=== PATIENT | female | born 1930 | race Caucasian/White ===

== ENCOUNTER 2016-07-26 11:56 | Emergency (ER) | payer OTHER ==
[2016-07-26 12:11] VITALS: BP 177/71
--- NOTE | 2016-07-26 12:46 | PROVIDER DOCUMENTATION ---
HPI-EENT General <Radha Vargas - Last Filed: 07/26/16 15:20> - General Source: patient - History of Present Illness-EENT General EENT Location: reports: dental Quality of Pain: reports: other (mild sensitivity) Onset/Duration: reports: other (past several days) Timing: reports: still present Prearrival Treatment: Initiated no prearrival treatment Associated Symptoms: reports: malaise, other (shortness of breath) Similar Symptoms Previously?: Yes Recently seen or treated by another doctor?: No <LakhaniMarta - Last Filed: 07/26/16 17:31> - General Chief Complaint: Toothache Stated Complaint: TOOTHACHE/JAW PAIN Time Seen by Provider: 07/26/16 13:30 Allergies/Adverse Reactions: Patient Allergies Allergy/AdvReac Type Severity Reaction Status Date / Time doxycycline Allergy RASH Verified 03/15/16 10:57 levofloxacin [From Levaquin] Allergy RASH Verified 03/15/16 10:57 Home Medications: Home Medication List Medication Instructions Recorded Confirmed Last Taken Type Calcium 500 mg PO DAILY 09/17/14 03/11/16 03/11/16 History 500 MG Albuterol Sulfate [Proair 90 mcg IH BID PRN PRN 12/14/15 03/11/16 03/11/16 History Respiclick] 90 MCG Apixaban [Eliquis] 2.5 mg PO DAILY 12/14/15 03/11/16 03/11/16 History 2.5 MG Furosemide [Lasix] 40 mg PO DAILY #30 tablet 12/20/15 03/11/16 03/11/16 Rx 40 MG Diltiazem HCl [Diltiazem ER] 180 mg PO DAILY 03/11/16 03/11/16 03/11/16 History Garlic 1 each PO DAILY 03/11/16 03/11/16 03/11/16 History Losartan [Cozaar] 50 mg PO BID 03/11/16 03/11/16 03/11/16 History Mv-Mn/FA/Vit K1/Lycop/Lut/Zeax 1 each PO DAILY 03/11/16 03/11/16 03/11/16 History [Ocuvite Eye + Multi Tablet] Prednisone 20 mg PO BID #10 tablet 03/14/16 Unknown Rx Famotidine [Pepcid] 20 mg PO DAILY #20 tablet 03/15/16 Unknown Rx Nitrofurantoin Centre/Macrocryst 100 mg PO BID #14 capsule 07/26/16 Unknown Rx [Macrobid] - History of Present Illness-EENT General Nature of Presenting Problem: 86 yo female presents to ER with c/o teeth sensitive, shortness of breath, and just not feeling well. She states that last time she felt bad and short of breath she ended up in ICU because of her CHF. She did not take lasix today because she knew she was coming up here. She denies fever. (Marta Lakhani) Review of Systems - Adult - REVIEW OF SYSTEMS - ADULT Constitutional: reports: see HPI, fatique Eyes: reports: no symptoms reported Ears, Nose, Mouth & Throat: reports: no symptoms reported, mouth/dental pain Cardiovascular: reports: no symptoms reported Respiratory: reports: see HPI, shortness of breath Gastrointestinal: reports: no symptoms reported Genitourinary: reports: no symptoms reported Musculoskeletal: reports: no symptoms reported Integumentary: reports: no symptoms reported Neurological: reports: no symptoms reported Psychiatric: reports: no symptoms reported Endocrine: reports: no symptoms reported Hematologic/Lymphatic: reports: no symptoms reported Allergic/Immunologic: reports: no symptoms reported All Other Systems: Reviewed and Negative <Marta Lakhani - Last Filed: 07/26/16 17:31> Past History - Adult - PAST MEDICAL HISTORY-ADULT Major Childhood Illnesses: reports: denies history Cardiovascular: reports: A-Fib, CHF, HTN Respiratory: reports: denies history Gastrointestinal: reports: denies history Obstetrical/Gynecological: reports: denies history Genitourinary: reports: denies history Musculoskeletal: reports: denies history Neurological: reports: denies history Endocrine/Immune: reports: denies history 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) - PRIOR SURGERIES/PROCEDURES Surgical/Procedure History: reports: hysterectomy, breast (lumpectomy on right) , other (eye sx; ) - IMMUNIZATION STATUS Childhood Immunizations: See Nurse Assessment Flu Vaccine: See Nurse Assessment - SOCIAL HISTORY Smoking: denies, non-smoker Substance Use: denies Living Situation: family <Marta Lakhani - Last Filed: 07/26/16 17:31> Physical Exam- EENT - Physical Exam EENT Initial Vital Signs Reviewed: Yes General Appearance: appears well, alert, no apparent distress Eye Exam: bilateral eye: normal inspection, PERRL, EOMI Ear Exam: bilateral ear: auricle normal, canal normal, TM normal Nasal Exam: normal inspection Throat Exam: normal mouth inspection, pharynx normal, other (no swelling or TTP ; poor dentition; multiple teeth removed) Neck: non-tender, full range of motion, supple Respiratory: lungs clear, normal breath sounds, no respiratory distress Cardiovascular: normal peripheral pulses Abdominal Exam: normal bowel sounds, non tender, soft Back Exam: normal inspection, no CVA tenderness, no vertebral tenderness Extremity: pedal edema Integumentary: normal color, normal turgor, warm/dry Neurologic: grossly normal Psych/Mental Status: normal mood/affect, normal thought content, normal thought process, oriented x 3 <Marta Lakhani - Last Filed: 07/26/16 17:31> Progress - EKG 1 Time of EKG reading by physician:: 14:44 EKG Read and Signed by:: Sancho Rodriguez EKG Interpretation (*Must complete 3 of following elements*): Abnormal Rate: 58 Rhythm: a-fib with slow ventricular response [place]: right QRS: normal [place] Interval: normal ST Wave: non-specific ST changes (T wave abnormality) <Radha Vargas - Last Filed: 07/26/16 15:20> <Marta Lakhani - Last Filed: 07/26/16 17:31> - PLAN OF CARE/RESULTS Progress/Plan/Lab Results: 1645-Discussed results/dx/tx/discharge and follow up instructions with patient; she verbalized understanding. Laboratory Tests 07/26/16 07/26/16 07/26/16 14:20 14:20 14:20 WBC 4.87 RBC 4.29 Hgb 13.2 Hct 41.5 MCV 96.7 MCH 30.8 MCHC 31.8 L RDW Std Deviation 12.6 Plt Count 141 MPV 10.2 Immature Gran % (Auto) 0.0 Neut % (Auto) 60.2 Lymph % (Auto) 27.1 Centre % (Auto) 10.5 H Eos % (Auto) 1.8 Baso % (Auto) 0.4 Immature Gran # (Auto) 0.00 Neut # (Auto) 2.93 Lymph # (Auto) 1.32 Centre # (Auto) 0.51 Eos # (Auto) 0.09 Baso # (Auto) 0.02 Sodium 137 Potassium 4.2 Chloride 99 Carbon Dioxide 30 Anion Gap 9 BUN 18 Creatinine 1.0 H Estimated GFR/1.73 m2 52 BUN/Creatinine Ratio 18 Glucose 108 H Calculated Osmolality 276 Calcium 9.5 Total Bilirubin 0.70 AST 26 ALT 11 Alkaline Phosphatase 105 H Creatine Kinase 57 Troponin T [id number] Pept Total Protein 6.9 Albumin 4.3 Globulin 3.0 Albumin/Globulin Ratio 2.0 Urine Source Urine Color Urine Clarity Urine pH Ur Specific [place] Urine Protein Urine Ketones Urine Blood Urine Nitrite Urine Bilirubin Urine Urobilinogen Urine Microscopic RBC Urine WBC Urine Microscopic WBC Ur Epithelial Cells Urine Bacteria Urine Glucose 07/26/16 07/26/16 07/26/16 14:20 14:20 14:50 WBC RBC Hgb Hct MCV MCH MCHC RDW Std Deviation Plt Count MPV Immature Gran % (Auto) Neut % (Auto) Lymph % (Auto) Centre % (Auto) Eos % (Auto) Baso % (Auto) Immature Gran # (Auto) Neut # (Auto) Lymph # (Auto) Centre # (Auto) Eos # (Auto) Baso # (Auto) Sodium Potassium Chloride Carbon Dioxide Anion Gap BUN Creatinine Estimated GFR/1.73 m2 BUN/Creatinine Ratio Glucose Calculated Osmolality Calcium Total Bilirubin AST ALT Alkaline Phosphatase Creatine Kinase Troponin T < 0.010 [id number] Pept 1536 H Total Protein Albumin Globulin Albumin/Globulin Ratio Urine Source CLEAN CATCH Urine Color YELLOW Urine Clarity SL. CLOUDY A Urine pH 7.0 Ur Specific [place] 1.010 Urine Protein TRACE A Urine Ketones NEGATIVE Urine Blood TRACE Urine Nitrite NEGATIVE Urine Bilirubin NEGATIVE Urine Urobilinogen 4+(12 mg/dL) Urine Microscopic RBC <10 Urine WBC TRACE A Urine Microscopic WBC <10 Ur Epithelial Cells <10 Urine Bacteria 2+ Urine Glucose NEGATIVE Orders Category Date Time Status CHEST-2 VIEWS [RAD] Stat Exams 07/26/16 13:45 Completed CBC WITH ELECTRONIC DIFF [HEME] Stat Lab 07/26/16 14:20 Completed CK PROFILE [SP CHEM] Stat Lab 07/26/16 14:20 Completed COMPREHENSIVE METABOLIC PANEL [CHEM] Stat Lab 07/26/16 14:20 Completed PRO B-NATRIURETIC PEPTIDE Stat Lab 07/26/16 14:20 Completed TROPONIN T Stat Lab 07/26/16 14:[address] W/POSS RFLX CULT [URINALYSIS] Stat Lab 07/26/16 14:50 Completed URINE CULTURE [RM] Routine Lab 07/26/16 16:37 Ordered Nitrofurantoin Centre/Macrocryst [Macrobid] Med 07/26/16 16:47 Discontinued 100 mg PO NOW ONE EKG [EKG] Stat Ther 07/26/16 13:45 Draft Vital Signs - 24 hr 07/26/16 12:07 Temperature 97.8 F Pulse Rate 65 Respiratory 19 Rate Blood Pressure 177/71 O2 Sat by Pulse 97 Oximetry (Marta Lakhani) Departure <Radha Vargas - Last Filed: 07/26/16 15:20> - Departure Time of Disposition Order: 16:50 Certified Medical Emergency: Emergent <Marta Lakhani - Last Filed: 07/26/16 17:31> - Departure DIAGNOSIS: Shortness of breath on exertion, Pain, dental UTI (urinary tract infection) Qualifiers: Urinary tract infection type: acute cystitis Hematuria presence: with hematuria Qualified Code(s): N30.01 - Acute cystitis with hematuria Disposition: HOME 01 Condition: Good Additional Instructions: Follow up with primary care doctor. Follow up with dentist in regards to dental pain. Take medication as prescribed. ED Follow Up Instructions: You have been treated by a care provider in the Emergency Department. These instructions are being provided to you so you can have an understanding of how to care for yourself upon discharge. Upon discharge from the Emergency Department, you are responsible for making arrangements for follow-up care by a physician of your choice. Take all prescribed medications as directed. Return to the Emergency Department immediately for any new or worsening symptoms. You may call the Physician Referral phone number at [phone] to obtain a list of Physicians who are taking new patients. Prescriptions: Nitrofurantoin Centre/Macrocryst [Macrobid] 100 mg PO BID #14 capsule Referrals: None,PCP [Primary Care Provider] - Ena Daley MD [STAFF PHYSICIAN] - Instructions: Nitrofurantoin tablets or capsules, Dental Pain, Shortness of Breath, Urinary Tract Infection Attestation - Scribe Verification/Attestation Scribe:: Radha Vargas Acting as Scribe for:: Marta Lakhani Scribe documention review:: This chart was documented by a scribe and accurately reflects the service the provider performed and the decisions made by the provider. <Radha Vargas - Last Filed: 07/26/16 15:20> - Physician/ LEONID Attestation Patient care was provided by Advanced Practice Provider:: Yes Advanced Practice Provider:: Marta Lakhani Advanced Practice Provider documentation review:: The Mid-level provider documentation, treatment plan and medical decision making was reviewed by the physician who agrees with all treatment and medical decision making by the P. <Marta Lakhani - Last Filed: 07/26/16 17:31> Physician Attestation - Physician Attestation I, the provider, attest to the following statement:: Marta Lakhani Physician documentation Attestation:: This documentation recorded by the scribe accurately reflects the service I personally performed and the decisions made by me. <Marta Lakhani - Last Filed: 07/26/16 17:31>
[2016-07-26 14:26] LABS: MANUAL DIFF NEEDED? NO
[2016-07-26 14:28] LABS: BASO% 0.4 % (0.0-0.8); EOS# 0.09 X1000 (0.0-0.7); EOS% 1.8 % (0.0-10.0); HEMATOCRIT 41.5 % (37.0-47.0); HEMOGLOBIN 13.2 g/dL (12.0-16.0); LYMPH# 1.32 X1000 (1.2-3.4); LYMPH% 27.1 % (20.5-51.1); MCH 30.8 PG (27-31); MCHC 31.8 g/dL (33-37); MCV 96.7 FL (81-99); MONO# 0.51 X1000 (0.11-0.59); MONO% 10.5 % (1.7-9.3); MPV 10.2 FL (7.4-10.4); NEUT% 60.2 % (42.2-75.2); PLT 141 X1000 (130-400); RBC 4.29 XMIL (4.2-5.4)
--- NOTE | 2016-07-26 14:31 | Diag Imaging Result Document ---
PROCEDURE NAME: CHEST-2 VIEWS - 07/26/2016 TWO VIEWS OF THE CHEST: FINDINGS: There is a hiatal hernia. There are bilateral small pleural effusions. This is worse than on 03/11/2016. Otherwise, there has been no significant change. IMPRESSION: Pleural effusions. Cardiomegaly.
[2016-07-26 14:45] LABS: ALBUMIN 4.3 g/dL (3.5-5.0); CALCIUM 9.5 mg/dL (8.8-10.2); POTASSIUM 4.2 mmol/L (3.5-5.1); TOTAL BILIRUBIN 0.7 mg/dL (0.20-1.00); TOTAL PROTEIN 6.9 g/dL (6.3-8.3)
--- NOTE | 2016-07-26 15:19 | EKG Report ---
Test Performed on : 07/26/2016 2:44:54 PM Test Reason : shortness of breath Blood Pressure : / mmHG Vent. Rate : 058 BPM Atrial Rate : 416 BPM P-R Int : 000 ms QRS Dur : 086 ms QT Int : 582 ms P-R-T Axes : 000 090 -10 degrees QTc Int : 571 ms Atrial fibrillation. with slow ventricular response. Rightward axis Nonspecific T wave abnormality Abnormal ECG When compared with ECG of 17-DEC-2015 06:17, Criteria for Anterior infarct are no longer present Unconfirmed Result
[2016-07-26 16:15] LABS: URINE SOURCE CLEAN CATCH
[2016-07-26 16:34] LABS: BILIRUBIN URINE NEGATIVE (NEGATIVE); BLOOD URINE TRACE (NEGATIVE); CLARITY SL. CLOUDY (CLEAR); COLOR YELLOW; GLUCOSE URINE NEGATIVE (NEGATIVE); LEUKOCYTES URINE TRACE (NEGATIVE); NITRITE URINE NEGATIVE (NEGATIVE); PROTEIN URINE TRACE mg/dL (NEGATIVE); UROBILINOGEN URINE 4+(12 mg/dL)
[2016-07-26 16:37] LABS: URINE CULTURE PL NEEDED? YES; URINE EPITHELIAL CELLS <10 /HPF (<10); URINE RBC <10 /HPF (<10); URINE WBC <10 /HPF (<10)
[2016-07-26] MEDS ORDERED: MACROBID PO ONE (16:47)
== END 2016-07-26 17:06 | disposition home or self-care (01) ==
LOC: P.ED 11:56
DX: N30.01 Acute cystitis with hematuria (principal); K08.89 Other specified disorders of teeth and supporting structures; R06.02 Shortness of breath; R94.31 Abnormal electrocardiogram [ECG] [EKG]; R68.84 Jaw pain; R53.81 Other malaise; R53.83 Other fatigue; I48.91 Unspecified atrial fibrillation; Z79.899 Other long term (current) drug therapy; I50.9 Heart failure, unspecified; I10 Essential (primary) hypertension; Z79.01 Long term (current) use of anticoagulants; Z85.810 Personal history of malignant neoplasm of tongue
CPT/HCPCS: 71020; 80053; 81001; 82550; 83880; 84484; 85025; 87088; 93005; 99284

== ENCOUNTER 2016-08-08 10:49 | Inpatient (IN) | payer OTHER ==
[2016-08-08] MEDS ORDERED: ASPIRIN PO STA (10:57)
[2016-08-08 11:33] LABS: MANUAL DIFF NEEDED? NO
[2016-08-08 11:35] LABS: BASO% 0.6 % (0.0-0.8); EOS# 0.14 X1000 (0.0-0.7); EOS% 3.9 % (0.0-10.0); HEMATOCRIT 39.4 % (37.0-47.0); HEMOGLOBIN 12.9 g/dL (12.0-16.0); LYMPH# 1.31 X1000 (1.2-3.4); LYMPH% 36.7 % (20.5-51.1); MCH 31.3 PG (27-31); MCHC 32.7 g/dL (33-37); MCV 95.6 FL (81-99); MONO# 0.36 X1000 (0.11-0.59); MONO% 10.1 % (1.7-9.3); MPV 10.2 FL (7.4-10.4); NEUT% 48.7 % (42.2-75.2); PLT 140 X1000 (130-400); RBC 4.12 XMIL (4.2-5.4)
--- NOTE | 2016-08-08 11:39 | Diag Imaging Result Document ---
PROCEDURE NAME: CHEST-2 VIEWS - 08/08/2016 TWO VIEWS OF THE CHEST: FINDINGS: There is cardiomegaly. There is bibasilar atelectasis which was not present on the left side on 03/11/2016. Otherwise, the lungs are stable in appearance. IMPRESSION: Atelectasis versus bronchopneumonia, left lower lobe.
--- NOTE | 2016-08-08 11:50 | PROVIDER DOCUMENTATION ---
HPI-Cardiac General <SmithLolisRaya - Last Filed: 08/08/16 14:58> - General Source: patient - History of Present Illness-Cardiac Location: reports: other (mild discomfort under her left breast) Quality of Pain: reports: other (discomfort) Severity in ED: mild Onset/Duration: 2 days ago Timing: still present Context/Activities at Onset: reports: none Modifying Factors: improves with: nothing History of arrythmia: reports: A-Fib Recent use of:: reports: no stimulants Nitro Today/Relief: reports: no nitro taken today Aspirin Treatment Today: reports: no aspirin today (she is on coumadin) Associated Symptoms: reports: weakness Similar Symptoms Previously?: Yes Recently Seen Here or By Another Healthcare Provider: Yes <Marta Lakhani - Last Filed: 08/08/16 20:05> - General Chief Complaint: Weakness Stated Complaint: WEAKNESS/POSS HEART ATTACK Time Seen by Provider: 08/08/16 11:29 Allergies/Adverse Reactions: Patient Allergies Allergy/AdvReac Type Severity Reaction Status Date / Time doxycycline Allergy RASH Verified 03/15/16 10:57 levofloxacin [From Levaquin] Allergy RASH Verified 03/15/16 10:57 Home Medications: Home Medication List Medication Instructions Recorded Confirmed Last Taken Type Calcium 500 mg PO DAILY 09/17/14 08/08/16 03/11/16 History 500 MG Furosemide [Lasix] 40 mg PO DAILY #30 tablet 12/20/15 08/08/16 03/11/16 Rx 40 MG Diltiazem HCl [Diltiazem ER] 180 mg PO DAILY 03/11/16 08/08/16 03/11/16 History Garlic 1 each PO DAILY 03/11/16 08/08/16 03/11/16 History Losartan [Cozaar] 50 mg PO BID 03/11/16 08/08/16 03/11/16 History Mv-Mn/FA/Vit K1/Lycop/Lut/Zeax 1 each PO DAILY 03/11/16 08/08/16 03/11/16 History [Ocuvite Eye + Multi Tablet] Warfarin [Coumadin] 5 mg PO DAILY 08/08/16 08/08/16 Unknown History - History of Present Illness-Cardiac Nature of Presenting Problem: 86 yo female presents to ER stating that she saw her heel blacker on Wednesday ; that doctor sent her to hospital for labs/cxr/EKG. Patient was called by heel blacker office and told that she needs to see vehicle leasing and rental manager as soon as possible and that she had a heart attack. She states that her vehicle leasing and rental manager office could not see her until August and she could not come to hospital yesterday so she came today. (Lakhani.) Review of Systems - Adult - REVIEW OF SYSTEMS - ADULT Constitutional: reports: see HPI, other (weakness) Eyes: reports: no symptoms reported Ears, Nose, Mouth & Throat: reports: no symptoms reported Cardiovascular: reports: see HPI Respiratory: reports: no symptoms reported Gastrointestinal: reports: no symptoms reported Genitourinary: reports: no symptoms reported Musculoskeletal: reports: no symptoms reported Integumentary: reports: no symptoms reported Neurological: reports: no symptoms reported Psychiatric: reports: no symptoms reported Endocrine: reports: no symptoms reported Hematologic/Lymphatic: reports: no symptoms reported Allergic/Immunologic: reports: no symptoms reported All Other Systems: Reviewed and Negative <LesviaAugust. - Last Filed: 08/08/16 20:05> Past History - Adult - PAST MEDICAL HISTORY-ADULT Review of Records: reports: Old Records Reviewed, Nursing Assessment Review, Medications Reviewed, Social history reviewed & non-contributory. 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 - Last Filed: 08/08/16 20:05> Physical Exam-General - PHYSICAL EXAM-ADULT Initial Vital Signs Reviewed: Yes - CONSTITUTIONAL General Appearance: appears well, alert, no apparent distress - EYES Eyes: PERRL/EOMI - HEAD, EARS, NOSE, MOUTH & THROAT HENMT: normocephalic/atraumatic - RESPIRATORY Respiratory: lungs clear, normal breath sounds, no respiratory distress - CARDIOVASCULAR Cardiovascular: normal peripheral pulses - MUSCULOSKELETAL Extremity: pedal edema (1-2 + pitting edema; patient states is is normal for her ) Peripheral Pulses: radial (R): 2+, radial (L): 2+, dorsalis-pedis (R): 2+, dorsalis-pedis (L): 2+ - SKIN Integumentary: normal color, normal turgor, warm/dry - NEUROLOGIC Neurologic: grossly normal - PSYCHIATRIC Psych/Mental Status: normal mood/affect, normal thought content, normal thought process, oriented x 3 <Marta Lakhani - Last Filed: 08/08/16 20:05> Progress - EKG 1 Time of EKG reading by physician:: 14:25 EKG Read and Signed by:: Sancho Rodriguez EKG Interpretation (*Must complete 3 of following elements*): Abnormal Rate: 52 Rhythm: junctional rhythm Comments: septal infarct, age undetermined <Raya Mtz - Last Filed: 08/08/16 14:58> - REASSESSMENT Reassessment #1 Time Reassessed: 16:20 Status: unchanged - CONSULTS/PCP/HOSPITALIST Notification #1 *Consult/PCP/Hospitalist*: Dr. Burrell Time Discussed: 16:30 (hospitalist) Consult Disposition: Admit <Marta Lakhani - Last Filed: 08/08/16 20:05> - PLAN OF CARE/RESULTS Progress/Plan/Lab Results: 1620-Discussed with Dr. Rodriguez labs/CXR results/decrease in HR to 35-38 with weakness symptoms; he agreed with admission. 1625-Discussed with patient results/dx/admission to hospital; she verbalized understanding. Laboratory Tests 08/08/16 08/08/16 08/08/16 11:15 11:15 11:15 WBC RBC Hgb Hct MCV MCH MCHC RDW Std Deviation Plt Count MPV Immature Gran % (Auto) Neut % (Auto) Lymph % (Auto) [place] % (Auto) Eos % (Auto) Baso % (Auto) Immature Gran # (Auto) Neut # (Auto) Lymph # (Auto) [place] # (Auto) Eos # (Auto) Baso # (Auto) PT INR APTT (Factor Assay) Sodium 140 Potassium 3.7 Chloride 100 Carbon Dioxide 29 Anion Gap 11 BUN 21 Creatinine 1.0 H Estimated GFR/1.73 m2 52 BUN/Creatinine Ratio 21 Glucose 83 Calculated Osmolality 282 Calcium 9.3 Magnesium 2.2 Total Bilirubin 0.60 AST 26 ALT 12 Alkaline Phosphatase 92 Creatine Kinase 53 Troponin T < 0.010 Zdx-I-Lsteyiiomjf Pept 1794 H Total Protein 6.8 Albumin 4.2 Globulin 3.0 Albumin/Globulin Ratio 2.0 TSH 08/08/16 08/08/16 08/08/16 11:15 11:15 13:13 WBC 3.57 L RBC 4.12 L Hgb 12.9 Hct 39.4 MCV 95.6 MCH 31.3 H MCHC 32.7 L RDW Std Deviation 12.5 Plt Count 140 MPV 10.2 Immature Gran % (Auto) 0.0 Neut % (Auto) 48.7 Lymph % (Auto) 36.7 [place] % (Auto) 10.1 H Eos % (Auto) 3.9 Baso % (Auto) 0.6 Immature Gran # (Auto) 0.00 Neut # (Auto) 1.74 Lymph # (Auto) 1.31 [place] # (Auto) 0.36 Eos # (Auto) 0.14 Baso # (Auto) 0.02 PT 21.7 H INR 1.87 H APTT (Factor Assay) 38.6 Sodium Potassium Chloride Carbon Dioxide Anion Gap BUN Creatinine Estimated GFR/1.73 m2 BUN/Creatinine Ratio Glucose Calculated Osmolality Calcium Magnesium Total Bilirubin AST ALT Alkaline Phosphatase Creatine Kinase Troponin T < 0.010 Cbc-U-Xumyncmpuow Pept Total Protein Albumin Globulin Albumin/Globulin Ratio TSH 08/08/16 08/08/16 08/08/16 13:13 18:55 18:55 WBC RBC Hgb Hct MCV MCH MCHC RDW Std Deviation Plt Count MPV Immature Gran % (Auto) Neut % (Auto) Lymph % (Auto) [place] % (Auto) Eos % (Auto) Baso % (Auto) Immature Gran # (Auto) Neut # (Auto) Lymph # (Auto) [place] # (Auto) Eos # (Auto) Baso # (Auto) PT INR APTT (Factor Assay) Sodium Potassium Chloride Carbon Dioxide Anion Gap BUN Creatinine Estimated GFR/1.73 m2 BUN/Creatinine Ratio Glucose Calculated Osmolality Calcium Magnesium Total Bilirubin AST ALT Alkaline Phosphatase Creatine Kinase 47 Troponin T < 0.010 Mqe-K-Jcpanghfshb Pept Total Protein Albumin Globulin Albumin/Globulin Ratio TSH 1.95 08/08/16 18:55 WBC RBC Hgb Hct MCV MCH MCHC RDW Std Deviation Plt Count MPV Immature Gran % (Auto) Neut % (Auto) Lymph % (Auto) [place] % (Auto) Eos % (Auto) Baso % (Auto) Immature Gran # (Auto) Neut # (Auto) Lymph # (Auto) [place] # (Auto) Eos # (Auto) Baso # (Auto) PT INR APTT (Factor Assay) Sodium Potassium Chloride Carbon Dioxide Anion Gap BUN Creatinine Estimated GFR/1.73 m2 BUN/Creatinine Ratio Glucose Calculated Osmolality Calcium Magnesium Total Bilirubin AST ALT Alkaline Phosphatase Creatine Kinase 49 Troponin T Czq-L-Cgzokzolsxc Pept Total Protein Albumin Globulin Albumin/Globulin Ratio TSH Orders Category Date Time Status Admit - [facility] Routine AdmDCTranf 08/08/16 17:13 Ordered Activity - Strict Bedrest ORDERED Care 08/08/16 17:13 Active Cardiac Monitoring DIRECTED Care 08/08/16 10:57 Completed Currently Rec Anticoagulation [QM] ROUTINE Care 08/08/16 18:04 Active Intake and Output-Strict ORDERED Care 08/08/16 18:04 Active Nursing- Assist w/ IS as order ORDERED Care 08/08/16 18:22 Active Nursing- MD Consult Request ROUTINE Care 08/08/16 19:43 Active Oxygen Therapy- ED Nursing DIRECTED Care 08/08/16 10:57 Completed Saline Loc NOW Care 08/08/16 10:57 Active Vital Signs Order Q 8-HR .ASSESS Care 08/08/16 17:13 Active Physician/Provider Consults Routine Cons 08/08/16 19:42 Ordered Heart Healthy Diet Diet 08/08/16 14:16 Active CHEST-2 VIEWS [RAD] Stat Exams 08/08/16 10:57 Completed BLOOD CULTURE [BLDCUL] Stat Lab 08/08/16 12:15 Results CBC WITH ELECTRONIC DIFF [HEME] Stat Lab 08/08/16 11:15 Completed CBC WITH NO DIFF [HEME] Routine Lab 08/09/16 06:00 Ordered CK PROFILE [SP CHEM] Routine Lab 08/08/16 18:55 Completed CK PROFILE [SP CHEM] Stat Lab 08/08/16 11:15 Completed CK PROFILE [SP CHEM] Stat Lab 08/08/16 13:13 Completed COMPREHENSIVE METABOLIC PANEL [CHEM] Routine Lab 08/09/16 06:00 Ordered COMPREHENSIVE METABOLIC PANEL [CHEM] Stat Lab 08/08/16 11:15 Completed MAGNESIUM [CHEM] Stat Lab 08/08/16 11:15 Completed PRO B-NATRIURETIC PEPTIDE Stat Lab 08/08/16 11:[address] Com[address]IME WITH INR PL [COAG] Stat Lab 08/08/16 11:15 Completed PROTIME WITH INR [COAG] DAILY Lab 08/09/16 06:00 Ordered PROTIME WITH INR [COAG] DAILY Lab 08/10/16 06:00 Ordered PROTIME WITH INR [COAG] DAILY Lab 08/11/16 06:[address] [COAG] Stat Lab 08/08/16 11:15 Completed TROPONIN T Routine Lab 08/08/16 18:55 Completed TROPONIN T Stat Lab 08/08/16 11:15 Completed TROPONIN T Stat Lab 08/08/16 13:13 Completed TSH Stat Lab 08/08/16 18:55 Completed Aspirin Med 08/08/16 10:57 Discontinued 325 mg PO STAT STA CefTRIAXONE 1 GM/NS [Rocephin 1 gm/Ns] 50 ml Med 08/08/16 18:30 Active IV Q24H Furosemide [Lasix] Med 08/09/16 09:00 Active 40 mg PO DAILY Omeprazole [Prilosec] Med 08/09/16 07:00 Active 40 mg PO DAILY@0700 Ondansetron [Zofran] Med 08/08/16 18:04 Active 4 mg IV Q4H PRN PRN Warfarin [Coumadin] Med 08/08/16 21:00 Active 5 mg PO HS Incentive Spirometer Routine Oth 08/08/16 18:22 Active Telemetry [OM.EQ] Routine Oth 08/08/16 17:13 Active EKG [EKG] Routine Ther 08/08/16 18:24 Ordered EKG [EKG] Stat Ther 08/08/16 10:57 Draft EKG [EKG] Stat Ther 08/08/16 12:32 Draft Transfer/Admit Order [TRANSFER] Routine Transfer 08/08/16 14:14 Completed Vital Signs - 24 hr 08/08/16 08/08/16 08/08/16 10:53 11:47 12:00 Temperature 97.8 F Pulse Rate 62 53 L Respiratory 18 13 Rate Blood Pressure 160/64 136/88 154/53 O2 Sat by Pulse 98 97 Oximetry 08/08/16 08/08/16 08/08/16 12:16 12:30 12:45 Temperature Pulse Rate 51 L 47 L 50 L Respiratory 18 18 17 Rate Blood Pressure 145/56 155/63 155/63 O2 Sat by Pulse 97 97 Oximetry 08/08/16 08/08/16 08/08/16 13:00 13:15 13:30 Temperature Pulse Rate 53 L 50 L 47 L Respiratory 19 17 20 Rate Blood Pressure 154/58 160/61 146/59 O2 Sat by Pulse 96 96 Oximetry 08/08/16 08/08/16 08/08/16 13:45 14:00 14:15 Temperature Pulse Rate 54 L 52 L 54 L Respiratory 16 19 20 Rate Blood Pressure 164/61 154/79 150/64 O2 Sat by Pulse 97 98 97 Oximetry 08/08/16 08/08/16 08/08/16 14:30 15:00 15:15 Temperature Pulse Rate 50 L 53 L 49 L Respiratory 15 22 18 Rate Blood Pressure 159/63 143/63 156/61 O2 Sat by Pulse 97 Oximetry 08/08/16 08/08/16 08/08/16 15:30 15:45 16:00 Temperature Pulse Rate 50 L 48 L 49 L Respiratory 17 17 17 Rate Blood Pressure 144/67 143/58 149/61 O2 Sat by Pulse 95 97 97 Oximetry 08/08/16 08/08/16 08/08/16 16:15 16:31 17:54 Temperature 97.7 F Pulse Rate 65 47 L 57 L Respiratory 18 17 18 Rate Blood Pressure 165/59 137/66 153/54 O2 Sat by Pulse 97 97 Oximetry (Marta Lakhani) Departure <Raya Mtz - Last Filed: 08/08/16 14:58> - Departure Time of Disposition Order: 20:03 Certified Medical Emergency: Emergent <Marta Lakhani - Last Filed: 08/08/16 20:05> - Departure DIAGNOSIS: Bradycardia, Weakness Disposition: ADMITTED INPATIENT 09 Condition: Good Attestation - Scribe Verification/Attestation Scribe:: Raya Mtz Acting as Scribe for:: Sancho Rodriguez Scribe documention review:: This chart was documented by a scribe and accurately reflects the service the provider performed and the decisions made by the provider. <Raya Mtz - Last Filed: 08/08/16 14:58> - Physician/ LEONID Attestation Patient care was provided by Advanced Practice Provider:: Yes Advanced Practice Provider:: Marta Lakhani Advanced Practice Provider documentation review:: The Mid-level provider documentation, treatment plan and medical decision making was reviewed by the physician who agrees with all treatment and medical decision making by the P. <Marta Lakhani - Last Filed: 08/08/16 20:05> Physician Attestation - Physician Attestation I, the provider, attest to the following statement:: Marta Lakhani Physician documentation Attestation:: This documentation recorded by the scribe accurately reflects the service I personally performed and the decisions made by me. <Marta Lakhani - Last Filed: 08/08/16 20:05>
[2016-08-08 11:57] LABS: ALBUMIN 4.2 g/dL (3.5-5.0); CALCIUM 9.3 mg/dL (8.8-10.2); MAGNESIUM 2.2 mg/dL (1.5-2.7); POTASSIUM 3.7 mmol/L (3.5-5.1); TOTAL BILIRUBIN 0.6 mg/dL (0.20-1.00); TOTAL PROTEIN 6.8 g/dL (6.3-8.3)
[2016-08-08 12:04] LABS: INR 1.87 (0.86-1.15); PROTIME 21.7 Seconds (12.1-15.5)
[2016-08-08 12:05] LABS: PTT PL 38.6 Seconds (22.6-43.9)
--- NOTE | 2016-08-08 12:08 | EKG Report ---
Test Performed on : 08/08/2016 11:54:21 AM Test Reason : CHEST PAIN Blood Pressure : / mmHG Vent. Rate : 049 BPM Atrial Rate : 047 BPM P-R Int : 000 ms QRS Dur : 086 ms QT Int : 466 ms P-R-T Axes : 000 090 -30 degrees QTc Int : 420 ms Atrial fibrillation. with slow ventricular response. Rightward axis Nonspecific T wave abnormality Abnormal ECG When compared with ECG of 06-AUG-2016 12:39, (Unconfirmed) Previous ECG has undetermined rhythm, needs review Criteria for Septal infarct are no longer present Unconfirmed Result
--- NOTE | 2016-08-08 12:51 | ED EKG INTERP ---
EKG Interpretation - EKG Time of EKG reading by physician:: 11:54 EKG Read and Signed by:: Sancho Rodriguez EKG Interpretation (*Must complete 3 of following elements*): Abnormal Rate: 49 Rhythm: atrial fibrillation with slow ventricular response Comments: rightward axis; nonspecific T wave abnormality Attestation - Scribe Verification/Attestation Scribe:: Raya Mtz Acting as Scribe for:: Sancho Rodriguez Scribe documention review:: This chart was documented by a scribe and accurately reflects the service the provider performed and the decisions made by the provider.
--- NOTE | 2016-08-08 16:23 | EKG Report ---
Test Performed on : 08/08/2016 2:25:00 PM Test Reason : repeat cardiac profile Blood Pressure : / mmHG Vent. Rate : 052 BPM Atrial Rate : 048 BPM P-R Int : 000 ms QRS Dur : 088 ms QT Int : 496 ms P-R-T Axes : 000 023 -43 degrees QTc Int : 461 ms Junctional rhythm. Septal infarct , age undetermined Abnormal ECG When compared with ECG of 08-AUG-2016 11:54, (Unconfirmed) Junctional rhythm. has replaced Atrial fibrillation. Septal infarct is now present Unconfirmed Result
[2016-08-08] MEDS ORDERED: ZOFRAN IV PRN (18:04)
[2016-08-08] MEDS: ROCEPHIN 1 GM/NS 50 ML IV SCH (19:09)
--- NOTE | 2016-08-08 20:19 | HISTORY AND PHYSICAL ---
CHIEF COMPLAINT: Generalized weakness. HISTORY OF PRESENT ILLNESS: This is an 86-year-old female with a history of hypertension, atrial fibrillation and congestive heart failure with an echocardiogram in October 2015 showing an EF of 65% with moderate to severe tricuspid regurgitation who presented to the emergency room after being called by her program lead office being told that she needed to be seen by device repair technician as soon as possible that she may have had a heart attack evidently from an EKG that was done in their office on Thursday. She stated that she called the device repair technician's office, they could not see her till August yesterday morning and she thought about it and decided to come to the emergency room today for evaluation. She did state that she has had some generalized weakness with shortness of breath since last Thursday. She denied any chest pain, syncope, palpitations, dizziness. EKG revealed a junctional rhythm at a rate of 52. Troponins have been negative on multiple occasions. She was also found to have a left lower lobe bronchopneumonia. In the emergency room blood cultures were obtained. She was given an aspirin and she is being admitted for further evaluation and treatment. PAST MEDICAL HISTORY: Chronic atrial fibrillation with chronic anticoagulation, hypertension, diastolic heart failure, moderate to moderately severe tricuspid regurgitation. PAST SURGICAL HISTORY: Hysterectomy and lumpectomy on the right breast. SOCIAL HISTORY: She denies alcohol, tobacco, or illicit drug use. ALLERGIES: Doxycycline and Levaquin. HOME MEDICATIONS: Warfarin 5 mg daily, Cozaar 50 mg b.i.d., garlic 1 daily, Lasix 40 mg daily, diltiazem ER 180 daily, calcium 500 daily. REVIEW OF SYSTEMS: A 14 point review of systems is discussed patient with pertinent positives stated in HPI. She denied any chest pain or chest pressure or palpitations, syncope, dizziness cough, fever, chills, nausea, vomiting, diarrhea, constipation, black or bloody vomitus, black or bloody stools, hematuria, dysuria. PHYSICAL EXAMINATION: GENERAL: This is an 86-year-old female who is actually standing at the bedside in no distress. VITAL SIGNS: Blood pressure is 153/54 with a heart rate of 57, respirations are 18, temperature is 97.7 degrees oral with O2 saturations of 97% on nasal cannula. CARDIOVASCULAR: Irregularly irregular rate and rhythm. She does have very faint 2/6 holosystolic murmur. PULMONARY: Breath sounds are clear. No increased work of breathing noted GASTROINTESTINAL: Abdomen is soft, nontender, nondistended. Bowel sounds in all 4 quadrants. EXTREMITIES: She does have some slight edema pretibial to ankles bilateral. This is nonpitting. Calves are nontender. DIAGNOSTICS: WBC is 3.5 with hemoglobin 12.9, hematocrit 39.4 and platelets of 140,000. INR is 1.87. Sodium is 140, potassium 3.7, BUN 21, creatinine 1 with a glucose of 83. Troponin is less than 0.010 multiple occasions. ProBNP is 1794. Chest x-ray revealed left lower lobe bronchopneumonia. Blood cultures are pending. ASSESSMENT AND PLAN: 1. Bradycardia. 2. Left lower lobe pneumonia. 3. General weakness. 4. Chronic atrial fibrillation with chronic anticoagulation. 5. Moderate tricuspid regurgitation with mild pulmonary hypertension. 6. Diastolic heart failure with an ejection fraction of 65% in October 2015. PLAN: Patient will be admitted to the hospital. She will be placed on telemetry. We will hold all of her medications. Will give supplemental oxygen. We will maintain a strict I and O saline lock. We will continue her warfarin with daily PT, INRs, recheck a CBC and CMP in the morning as well as an EKG. We will start Rocephin 1 g daily. Cardiology will be consulted. Further treatments pending hospital course. Dictated by DIVYA De Dios for Lamberto Burrell MD
[2016-08-08] MEDS: COUMADIN PO SCH (20:28)
[2016-08-09] MEDS: PRILOSEC PO SCH (06:08)
[2016-08-09 06:24] LABS: HEMATOCRIT 34.8 % (37.0-47.0); MCH 30.4 PG (27-31); MCHC 31.6 g/dL (33-37); MCV 96.1 FL (81-99); MPV 11.1 FL (7.4-10.4); RBC 3.62 XMIL (4.2-5.4)
[2016-08-09 06:27] LABS: INR 2.09 (0.86-1.15); PROTIME 23.6 Seconds (12.1-15.5)
--- NOTE | 2016-08-09 06:31 | EKG Report ---
Test Performed on : 08/08/2016 6:34:25 PM Test Reason : a fib, bradycardia Blood Pressure : / mmHG Vent. Rate : 052 BPM Atrial Rate : 060 BPM P-R Int : 000 ms QRS Dur : 090 ms QT Int : 450 ms P-R-T Axes : 000 022 -44 degrees QTc Int : 418 ms Atrial fibrillation. with slow ventricular response. RSR' or QR pattern in V1 suggests right ventricular conduction delay Nonspecific ST and T wave abnormality Abnormal ECG When compared with ECG of 08-AUG-2016 14:25, (Unconfirmed) Atrial fibrillation. has replaced Junctional rhythm. Criteria for Septal infarct are no longer present Unconfirmed Result
[2016-08-09 06:41] LABS: ALBUMIN 3.5 g/dL (3.5-5.0); CALCIUM 8.7 mg/dL (8.8-10.2); POTASSIUM 3.7 mmol/L (3.5-5.1); TOTAL BILIRUBIN 0.4 mg/dL (0.20-1.00); TOTAL PROTEIN 5.4 g/dL (6.3-8.3)
[2016-08-09] MEDS: COZAAR PO SCH ×2 (09:25→20:33)
[2016-08-09] MEDS: LASIX PO SCH (09:25)
--- NOTE | 2016-08-09 11:27 | PROGRESS NOTE ---
DATE: 08/09/2016 SUBJECTIVE: The patient notes that she is feeling better. States her heart rate was in the upper 40s and low 50s overnight. Denies any current chest pain or palpitations. Denies any fevers or chills. OBJECTIVE: Vital Signs: Reviewed. Temperature 98 degrees, pulse 55, respiratory rate 18, blood pressure 124/44, saturation 98% on room air. General: The patient is well developed and well nourished. She is currently in no real respiratory distress. She is awake, alert. Neck: Supple. Cardiovascular: Bradycardic. No appreciable murmurs. Chest: Clear. Abdomen: Soft. Extremities: Moves all extremities. LABORATORIES: CBC unchanged. INR 2.09. ASSESSMENT: 1. Atrial fibrillation, currently rate controlled with bradycardia. 2. Symptomatic bradycardia, improved. 3. Hypercoagulable secondary to Coumadin, stable. INR greater than 2. 4. Hypertension. PLAN: Patient's blood pressures have been relatively well controlled. She did not get her Hyzaar yesterday. We will restart that today. Will hold her diltiazem today and follow. Should her heart rate start to elevate, we will start back at a lower dose, possibly 120 instead of her current home dose of 180. Hopefully, home in the a.m.
--- NOTE | 2016-08-09 17:29 | CONSULTATION ---
DATE OF CONSULTATION: 08/09/2016 INDICATION: Bradycardia. HISTORY OF PRESENT ILLNESS: Ms. Barrios is a pleasant 86-year-old white female who normally follows with Dr. Kirkland. She has a history of chronic atrial fibrillation, maintained on Coumadin, last seeing him in the office at the end of April. She came in with generalized weakness, as it has been ongoing for what sounds like months. She was seen in her food writer's office and was told she needed to be seen by her fashion coordinator as soon as possible because an EKG may have indicated that she had a heart attack. She subsequently presented to the ER and was evaluated and found to have an EKG that showed a significant atrial fibrillation with a bradycardic ventricular response. She was admitted for further evaluation. In addition, her chest x-rays suggest a left lower lobe pneumonia. PAST MEDICAL HISTORY: 1. Significant for chronic atrial fibrillation maintained on diltiazem as well as Coumadin. 2. Severe tricuspid regurgitation. 3. COPD. 4. History of diastolic heart failure. 5. Hypertension. 6. Chronic renal insufficiency. SOCIAL HISTORY: She denies any alcohol, tobacco or illicit drug use. FAMILY HISTORY: Significant for hypertension. REVIEW OF SYSTEMS: A 10 system review of systems is negative except for those mentioned in HPI. PHYSICAL EXAMINATION: She is afebrile. Her heart rates during this hospitalization have ranged between the 40s and 60s. More recently, she has been predominantly in the 50s. Her blood pressure is 142/61.General: She is in no acute distress. HEENT: Oropharynx is moist. Poor dentition. Eye examination shows pink conjunctivae, white sclerae. Neck: Examination shows no obvious thyromegaly or thyroid tenderness. Cardiovascular: She is in a regular rate and rhythm. She has no obvious murmurs. She has no S3. She has trace to 1+ bilateral lower extremity edema. Chest: Clear to auscultation bilaterally. She has no increased work of breathing. Abdomen: Soft, nontender, nondistended. No obvious organomegaly. Skin Exam: Warm and dry throughout without any rashes. Neurological: She is moving all extremities well. Cranial nerves 2 through 12 are intact without any sensation deficits. Psychiatric: Alert and oriented, pleasant. She has normal mood and affect. PERTINENT DATA: Her EKG on the at 11:54 seems to show atrial fibrillation with a bradycardic response. She does seem to have some irregularity in her ventricular response suggesting that it is not a junctional escape. Next EKG at 14:25 yesterday again shows atrial fibrillation. This one appears relatively regular with a bradycardic response at 52 beats per minute suggesting a possible junctional escape and subsequent EKG occurring at 18:34 yesterday shows atrial fib, bradycardic ventricular response. There is irregularity in the ventricular response suggesting that it is not a junctional rhythm. White count is 3.3. Hematocrit 34.8, platelet count is 110,000. INR is 2.09. Sodium 141, potassium 3.7. Her BUN is 19, creatinine 0.9. Her magnesium level yesterday was 2.2. She has negative cardiac enzymes. Her TSH is 1.95. Her proBNP is 1794. ASSESSMENT: Atrial fibrillation with bradycardic response. PLAN: The patient does not have digoxin listed in her home medications but I will add a dig level just in case given that she has had some EKG suggesting a possible junctional escape. The diltiazem has been stopped and likely we will proceed with home heart rate monitoring to ensure that the patient is not having a significant arrhythmia requiring possible pacemaker implantation. The patient is maintained on warfarin for her atrial fibrillation which I agree with. Primary team is managing this presently. TSH is unremarkable.
[2016-08-09] MEDS: ROCEPHIN 1 GM/NS 50 ML IV SCH (18:27)
[2016-08-09] MEDS: COUMADIN PO SCH (20:32)
[2016-08-10] MEDS: PRILOSEC PO SCH (05:59)
[2016-08-10 07:02] LABS: INR 2.06 (0.86-1.15); PROTIME 23.3 Seconds (12.1-15.5)
[2016-08-10 07:49] VITALS: BP 141/50
[2016-08-10] MEDS: COZAAR PO SCH (09:14)
[2016-08-10] MEDS: LASIX PO SCH (09:14)
--- NOTE | 2016-08-10 19:08 | DISCHARGE SUMMARY ---
ADMISSION DATE: 08/08/2016 DISCHARGE DATE: 08/10/2016 DISCHARGE DIAGNOSES: 1. Bradycardia. Improved after stopping her home Cardizem. Her heart rates have been in the upper 50s, low 60s. 2. Atrial fibrillation. Currently rate controlled without Cardizem. 3. Hypercoagulable. She is on Coumadin 5 mg at nighttime. INR is 2.08. 4. Syncope, resolved. Secondary to her symptomatic bradycardia. 5. Hypertension, improved. CONSULTATIONS: Dr. Jhonathan Dumont with Cardiology. PROCEDURES AND BRIEF HOSPITAL COURSE: The patient is an 86-year-old female who presented to the emergency department as noted in the HPI, treated in the usual fashion. She was placed on telemetry. Her heart rate continued to improve. On discharge she was awake, alert. She was in no distress. She was feeling better. She was able to ambulate without any difficulty. Thankfully she had an uneventful hospital course. DISPOSITION: The patient will be discharged home. DISCHARGE INSTRUCTIONS: She will follow up outpatient with Cardiology for an event monitor. Then she will follow up outpatient with an appointment with Cardiology to evaluate to see if she is going to need a pacemaker. Will continue to hold her Cardizem. Will continue her other home medications of Coumadin 5 mg at nighttime, Lasix 40, omeprazole 40, and Cozaar 50 b.i.d. TIME: Thirty-five minutes was spent in discharge planning and instructions.
--- NOTE | 2016-08-15 10:06 | DISCHARGE SUMMARY ---
ADMISSION DATE: 08/08/2016 DISCHARGE DATE: 08/10/2016 DISCHARGE SUMMARY ADDENDUM: Pneumonia was ruled out. The patient was discharged home without antibiotics.
== END 2016-08-10 16:55 | disposition home or self-care (01) | DRG 309 ==
LOC: P.ED 10:49 → P.EDIPHOLD 15:19 → P.MEDSURG 16:44
PROVIDERS: ATTEND Family Medicine
DX: R00.1 Bradycardia, unspecified (principal); I13.0 Hypertensive heart and chronic kidney disease with heart failure and stage 1 through stage 4 chronic kidney disease, or unspecified chronic kidney disease; I27.2 Other secondary pulmonary hypertension; I50.32 Chronic diastolic (congestive) heart failure; I48.2 Chronic atrial fibrillation; I07.1 Rheumatic tricuspid insufficiency; Z79.01 Long term (current) use of anticoagulants; Z85.89 Personal history of malignant neoplasm of other organs and systems; Z79.899 Other long term (current) drug therapy; N18.9 Chronic kidney disease, unspecified; R79.1 Abnormal coagulation profile
CPT/HCPCS: 36415; 71020; 80053; 80162; 82550; 83735; 83880; 84443; 84484; 85025; 85027; 85610; 85730; 87040; 93005; 94761; 94799; 99285; J0696

== ENCOUNTER 2016-09-17 14:48 | Inpatient (IN) ==
[2016-09-17 15:35] LABS: MANUAL DIFF NEEDED? NO
[2016-09-17 15:45] LABS: BASO% 0.2 % (0.0-0.8); EOS# 0.07 X1000 (0.0-0.7); EOS% 1.7 % (0.0-10.0); HEMATOCRIT 37.4 % (37.0-47.0); HEMOGLOBIN 11.9 g/dL (12.0-16.0); LYMPH# 1.49 X1000 (1.2-3.4); LYMPH% 36.1 % (20.5-51.1); MCH 30.5 PG (27-31); MCHC 31.8 g/dL (33-37); MCV 95.9 FL (81-99); MONO# 0.41 X1000 (0.11-0.59); MONO% 9.9 % (1.7-9.3); NEUT% 52.1 % (42.2-75.2); PLT 111 X1000 (130-400)
[2016-09-17] MEDS ORDERED: APRESOLINE IV ONE (15:47)
--- NOTE | 2016-09-17 15:48 | PROVIDER DOCUMENTATION ---
HPI-Cardiac General - General Chief Complaint: Shortness of Breath Stated Complaint: SOB Time Seen by Provider: 09/17/16 15:36 Source: patient Allergies/Adverse Reactions: Patient Allergies Allergy/AdvReac Type Severity Reaction Status Date / Time doxycycline Allergy RASH Verified 03/15/16 10:57 levofloxacin [From Levaquin] Allergy RASH Verified 03/15/16 10:57 Home Medications: Home Medication List Medication Instructions Recorded Confirmed Last Taken Type Calcium 500 mg PO DAILY 09/17/14 08/08/16 03/11/16 History 500 MG Furosemide [Lasix] 40 mg PO DAILY #30 tablet 12/20/15 08/08/16 03/11/16 Rx 40 MG Garlic 1 each PO DAILY 03/11/16 08/08/16 03/11/16 History Losartan [Cozaar] 50 mg PO BID 03/11/16 08/08/16 03/11/16 History Mv-Mn/FA/Vit K1/Lycop/Lut/Zeax 1 each PO DAILY 03/11/16 08/08/16 03/11/16 History [Ocuvite Eye + Multi Tablet] Warfarin [Coumadin] 5 mg PO DAILY 08/08/16 08/08/16 Unknown History Omeprazole [Prilosec] 40 mg PO DAILY@0700 #30 capsule 08/10/16 Unknown Rx - History of Present Illness-Cardiac Nature of Presenting Problem: 86 y/o WF, poor historian, with daughter in room. She has a history of AFib with chronic anticoagulation on Warfarin, HTN, and congestive heart failure with preserved EF of 68% on last echo in October 2015, presenting today for shortness of breath. She was recently hospitalized in July for this same complaint and generalized weakness. She apparently has had weakness and shortness or breath for the past 3-4 months, and has not felt improved since last admission. She followed up with the non destructive evaluation specialist within the last two weeks , she cannot remember what day. She was supposed to have an event monitor per last discharge plan, but states she has not had this. Reports dyspnea on exertion, no weight gain that she has noticed from her baseline. Denies chest pain or cough. Review of Systems - Adult - REVIEW OF SYSTEMS - ADULT Constitutional: reports: see bindu DEL RIO. denies: chills, fever Eyes: reports: no symptoms reported. denies: decreased vision, blurred vision, double vision, eye pain Ears, Nose, Mouth & Throat: reports: no symptoms reported. denies: ear pain, nose pain, throat pain Cardiovascular: reports: no symptoms reported. denies: chest pain, irregular heart rate, palpitations Respiratory: reports: see HPI, shortness of breath. denies: cough, wheezing Gastrointestinal: reports: no symptoms reported. denies: abdominal pain, diarrhea, nausea, vomiting Genitourinary: reports: no symptoms reported. denies: dysuria, discharge, frequency Musculoskeletal: reports: no symptoms reported. denies: bone pain, back pain, muscle aches Integumentary: reports: no symptoms reported. denies: rash Neurological: reports: no symptoms reported. denies: headache/migraines Psychiatric: reports: no symptoms reported Endocrine: reports: no symptoms reported Hematologic/Lymphatic: reports: no symptoms reported Allergic/Immunologic: reports: no symptoms reported All Other Systems: Reviewed and Negative Past History - Adult - PAST MEDICAL HISTORY-ADULT Review of Records: reports: Old Records Reviewed, Nursing Assessment Review, Medications Reviewed Major Childhood Illnesses: reports: denies history Cardiovascular: reports: CHF, HTN Respiratory: reports: denies history Gastrointestinal: reports: denies history Obstetrical/Gynecological: reports: denies history Genitourinary: reports: denies history Musculoskeletal: reports: denies history Neurological: reports: denies history 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) Other Conditions: reports: other cancer (tongue) - PRIOR SURGERIES/PROCEDURES Surgical/Procedure History: reports: hysterectomy, breast (lumpectomy on right) , other (eye sx; ) - IMMUNIZATION STATUS Childhood Immunizations: See Nurse Assessment Flu Vaccine: See Nurse Assessment - FAMILY HISTORY Family History: reviewed, not pertinent - SOCIAL HISTORY Smoking: denies Substance Use: none/never Alcohol Use Frequency: never Physical Exam-General - PHYSICAL EXAM-ADULT Initial Vital Signs Reviewed: Yes - CONSTITUTIONAL General Appearance: appears well, alert, anxious - EYES Eyes: PERRL/EOMI, pink conjunctivae - HEAD, EARS, NOSE, MOUTH & THROAT HENMT: normocephalic/atraumatic, moist mucous membranes, normal ENT inspection - NECK Neck: supple, normal inspection - RESPIRATORY Respiratory: chest non-tender, lungs clear, normal breath sounds, no pleuratic chest pain, no respiratory distress, no accessory muscle use. negative: respiratory distress, decreased breath sounds, accessory muscle use, crackles, rales, rhonchi, wheezing - CARDIOVASCULAR Cardiovascular: normal peripheral pulses, regular rate, rhythm, bradycardia, irregularly irregular, other (1+ edema to knees bilaterally) - MUSCULOSKELETAL Extremity: normal range of motion, non-tender, pedal edema Peripheral Pulses: dorsalis-pedis (R): 2+, dorsalis-pedis (L): 2+ - SKIN Integumentary: normal color, normal turgor, warm/dry - NEUROLOGIC Neurologic: grossly normal, no motor/sensory deficits - PSYCHIATRIC Psych/Mental Status: normal mood/affect, normal thought content, normal thought process, oriented x 3 Progress - PLAN OF CARE/RESULTS Progress/Plan/Lab Results: Vital Signs - 8 hr 09/17/16 14:52 09/17/16 16:23 09/17/16 17:00 Temperature 98 F 97.4 F L Pulse Rate 67 58 L 59 L Respiratory Rate 18 20 20 Blood Pressure 205/67 190/79 172/77 O2 Sat by Pulse Oximetry 97 95 95 09/17/16 18:42 09/17/16 19:15 Temperature Pulse Rate 46 L 52 L Respiratory Rate 15 19 Blood Pressure 172/64 175/71 O2 Sat by Pulse Oximetry 93 L 95 Laboratory Results - last 24 hr 09/17/16 09/17/16 09/17/16 15:25 15:25 15:25 WBC 4.13 L RBC 3.90 L Hgb 11.9 L Hct 37.4 MCV 95.9 MCH 30.5 MCHC 31.8 L RDW Std Deviation 13.1 Plt Count 111 L MPV 10.0 Immature Gran % (Auto) 0.0 Neut % (Auto) 52.1 Lymph % (Auto) 36.1 Hart % (Auto) 9.9 H Eos % (Auto) 1.7 Baso % (Auto) 0.2 Immature Gran # (Auto) 0.00 Neut # (Auto) 2.15 Lymph # (Auto) 1.49 Hart # (Auto) 0.41 Eos # (Auto) 0.07 Baso # (Auto) 0.01 APTT (Factor Assay) D-Dimer Sodium 138 Potassium 4.0 Chloride 100 Carbon Dioxide 28 Anion Gap 10 BUN 16 Creatinine 0.7 Estimated GFR/1.73 m2 > 60 BUN/Creatinine Ratio 23 Glucose 88 Calculated Osmolality 276 Calcium 9.3 Magnesium 2.1 Total Bilirubin 0.80 AST 31 H ALT 12 Alkaline Phosphatase 93 Creatine Kinase 52 Troponin T < 0.010 Dul-I-Jdnpgpyrsku Pept Total Protein 7.0 Albumin 4.1 Globulin 3.0 Albumin/Globulin Ratio 1.0 09/17/16 09/17/16 09/17/16 15:25 17:40 17:40 WBC RBC Hgb Hct MCV MCH MCHC RDW Std Deviation Plt Count MPV Immature Gran % (Auto) Neut % (Auto) Lymph % (Auto) Hart % (Auto) Eos % (Auto) Baso % (Auto) Immature Gran # (Auto) Neut # (Auto) Lymph # (Auto) Hart # (Auto) Eos # (Auto) Baso # (Auto) APTT (Factor Assay) 42.1 D-Dimer < 0.22 L Sodium Potassium Chloride Carbon Dioxide Anion Gap BUN Creatinine Estimated GFR/1.73 m2 BUN/Creatinine Ratio Glucose Calculated Osmolality Calcium Magnesium Total Bilirubin AST ALT Alkaline Phosphatase Creatine Kinase 51 Troponin T < 0.010 Vfm-I-Bzhpnkdjacv Pept Total Protein Albumin Globulin Albumin/Globulin Ratio 09/17/16 17:40 WBC RBC Hgb Hct MCV MCH MCHC RDW Std Deviation Plt Count MPV Immature Gran % (Auto) Neut % (Auto) Lymph % (Auto) Hart % (Auto) Eos % (Auto) Baso % (Auto) Immature Gran # (Auto) Neut # (Auto) Lymph # (Auto) Hart # (Auto) Eos # (Auto) Baso # (Auto) APTT (Factor Assay) D-Dimer Sodium Potassium Chloride Carbon Dioxide Anion Gap BUN Creatinine Estimated GFR/1.73 m2 BUN/Creatinine Ratio Glucose Calculated Osmolality Calcium Magnesium Total Bilirubin AST ALT Alkaline Phosphatase Creatine Kinase Troponin T Zvo-H-Pzrhfwkexvc Pept 1949 H Total Protein Albumin Globulin Albumin/Globulin Ratio Orders Category Date Time Status Cardiac Monitoring DIRECTED Care 09/17/16 15:08 Active CHEST-2 VIEWS [RAD] Stat Exams 09/17/16 15:08 Draft CBC WITH ELECTRONIC DIFF [HEME] Stat Lab 09/17/16 15:25 Completed CK PROFILE [SP CHEM] Stat Lab 09/17/16 15:25 Completed CK PROFILE [SP CHEM] Stat Lab 09/17/16 17:40 Completed COMPREHENSIVE METABOLIC PANEL [CHEM] Stat Lab 09/17/16 15:[address] D-D[address] [COAG] Stat Lab 09/17/16 15:25 Completed MAGNESIUM [CHEM] Stat Lab 09/17/16 15:[address] [COAG] Stat Lab 09/17/16 15:25 Completed TROPONIN T Stat Lab 09/17/16 15:25 Completed TROPONIN T Stat Lab 09/17/16 17:40 Completed UA NIMS W/REFLEX CULT PL [URINALYSIS] Stat Lab 09/17/16 15:46 Ordered pro-bnp [PRO B-NATRIURETIC PEPTIDE] Stat Lab 09/17/16 17:40 Completed Azithromycin 500 mg/Ns [Zithromax 500 mg/Ns] Med 09/17/16 16:19 Discontinued 500 mg in 250 ml IV NOW Clonidine [Catapres] Med 09/17/16 16:28 Discontinued 0.1 mg PO NOW ONE Hydralazine [Apresoline] Med 09/17/16 15:47 Discontinued 10 mg IV NOW ONE EKG [EKG] Stat Ther 09/17/16 15:08 Draft EKG [EKG] Stat Ther 09/17/16 17:15 Draft Discussed patient with Dr. Rodriguez, who reviewed chart, labs and radiology. Agrees with treatment, disposition and plan Discussed findigs and plan with patient and family members; they are uncomfortable sending her home with her shortness of breath and her bradycardia. Result Diagrams: 09/17/16 15:25 09/17/16 15:25 - XRAY 1 XRAY: Bilateral XRAY Study: Chest Impression: Abnormal (small infiltrate or atelectasis in the right lung base per radiology) - CONSULTS/PCP/HOSPITALIST Notification #1 *Consult/PCP/Hospitalist*: Dr. morin, hospitalist Time Discussed: 19:31 Reason/Comments: dyspnea, bradycardia Consult Disposition: Admit Departure - Departure Time of Disposition Decision: 18:55 DIAGNOSIS: SOB (shortness of breath), Chronic a-fib, Bradycardia, Weakness CHF (congestive heart failure) Qualifiers: Congestive heart failure type: diastolic Congestive heart failure chronicity: chronic Qualified Code(s): I50.32 - Chronic diastolic (congestive) heart failure Pneumonia Qualifiers: Pneumonia type: due to unspecified organism Laterality: right Lung location: lower lobe of lung Qualified Code(s): J18.1 - Lobar pneumonia, unspecified organism Disposition: ADMITTED INPATIENT 09 Certified Medical Emergency: Emergent Condition: Stable Additional Freetext Instructions: Follow up with Dr. Swain this week ED Follow Up Instructions: You have been treated by a care provider in the Emergency Department. These instructions are being provided to you so you can have an understanding of how to care for yourself upon discharge. Upon discharge from the Emergency Department, you are responsible for making arrangements for follow-up care by a physician of your choice. Take all prescribed medications as directed. Return to the Emergency Department immediately for any new or worsening symptoms. You may call the Physician Referral phone number at [phone] to obtain a list of Physicians who are taking new patients. Referrals and Follow-Ups: Taurus Damico MD [Primary Care Provider] - Rah Swain MD [STAFF PHYSICIAN] - Work Excuses: Return to School/Parent Work Discharge Education: Shortness of Breath, Vaml-tm-Nodz, Weakness, Fjih-xq-Dikc , Azithromycin tablets, Heart Failure, Syxb-ae-Hxqg Attestation - Physician/ LEONID Attestation Patient care was provided by Advanced Practice Provider:: Yes Advanced Practice Provider:: Mansi Collins Advanced Practice Provider documentation review:: The Mid-level provider documentation, treatment plan and medical decision making was reviewed by the physician who agrees with all treatment and medical decision making by the MLP.
[2016-09-17 15:53] LABS: AGAP 10; ALBUMIN 4.1 g/dL (3.5-5.0); ALKALINE PHOSPHATASE 93 U/L (32-104); BUN 16 mg/dL (8-22); CALCIUM 9.3 mg/dL (8.8-10.2); CHLORIDE 100 mmol/L (98-107); CK PROFILE 52 U/L (24-173); COSMO 276; GOT 31 U/L (10-30); GPT 12 U/L (10-36); MAGNESIUM 2.1 mg/dL (1.5-2.7); PTT PL 42.1 Seconds (22.6-43.9); SODIUM 138 mmol/L (136-145); TCO2 28 mmol/L (25-35)
--- NOTE | 2016-09-17 15:59 | EKG Report ---
Test Performed on : 09/17/2016 3:46:05 PM Test Reason : CHEST PAIN Blood Pressure : / mmHG Vent. Rate : 054 BPM Atrial Rate : 046 BPM P-R Int : 000 ms QRS Dur : 082 ms QT Int : 478 ms P-R-T Axes : 000 075 -29 degrees QTc Int : 453 ms Atrial fibrillation. with slow ventricular response. Septal infarct , age undetermined Abnormal ECG When compared with ECG of 08-AUG-2016 18:34, Septal infarct is now present Unconfirmed Result
[2016-09-17] MEDS ORDERED: ZITHROMAX 500 MG/NS 500 MG/250 ML IVPB IV ONE (16:19)
[2016-09-17] MEDS ORDERED: CATAPRES PO ONE (16:28)
--- NOTE | 2016-09-17 18:23 | EKG Report ---
Test Performed on : 09/17/2016 5:41:36 PM Test Reason : sob Blood Pressure : / mmHG Vent. Rate : 056 BPM Atrial Rate : 064 BPM P-R Int : 000 ms QRS Dur : 086 ms QT Int : 494 ms P-R-T Axes : 000 066 -44 degrees QTc Int : 476 ms Atrial fibrillation. with slow ventricular response. Septal infarct (cited on or before 17-SEP-2016) Abnormal ECG When compared with ECG of 17-SEP-2016 15:46, (Unconfirmed) No significant change was found Unconfirmed Result
--- NOTE | 2016-09-17 18:58 | Diag Imaging Result Document ---
PROCEDURE NAME: CHEST-2 VIEWS - 09/17/2016 FRONTAL AND LEFT CHEST, 2 VIEWS: COMPARISON: Compared to 08/08/2016. The lungs are well expanded. The heart is mildly enlarged. The vessels are not distended. There is an infiltrate or atelectasis in the right base. No effusions. Increased AP diameter to the chest. IMPRESSION: 1. Emphysema. 2. Mildly prominent heart. 3. Atelectasis versus a small infiltrate in the right base.
[2016-09-17] MEDS ORDERED: MIRALAX PO ONE (20:43)
[2016-09-17] MEDS: COUMADIN PO SCH (22:47)
[2016-09-18 01:39] LABS: BILIRUBIN URINE NEGATIVE (NEGATIVE); BLOOD URINE 2+ (NEGATIVE); CLARITY CLEAR (CLEAR); COLOR YELLOW; GLUCOSE URINE NEGATIVE (NEGATIVE); LEUKOCYTES URINE TRACE (NEGATIVE); NITRITE URINE NEGATIVE (NEGATIVE); PH URINE 6.5; PROTEIN URINE 1+(30 mg/dL) mg/dL (NEGATIVE); SP GRAVITY URINE 1.015; UROBILINOGEN URINE NORMAL
[2016-09-18 01:55] LABS: URINE CULTURE PL NEEDED? YES; URINE EPITHELIAL CELLS <10 /HPF (<10); URINE RBC <10 /HPF (<10); URINE SMALL ROUND CELLS TRANSITIONAL PRESENT; URINE SOURCE CLEAN CATCH; URINE WBC <10 /HPF (<10)
[2016-09-18] MEDS: PATIENT'S OWN MED PO SCH (09:22)
[2016-09-18] MEDS: TUMS PO SCH (09:22)
[2016-09-18] MEDS: LASIX PO SCH (09:22)
[2016-09-18] MEDS: COZAAR PO SCH (09:22)
[2016-09-18] MEDS: MIRALAX PO SCH (09:22)
--- NOTE | 2016-09-18 09:32 | Diag Imaging Result Document ---
PROCEDURE NAME: KUB ABDOMEN - 09/17/2016 KUB ABDOMEN: FINDINGS: The bowel gas pattern appears nonspecific and nonobstructive. There is a moderate amount of retained fecal debris in the rectosigmoid colon and in the right colon which may relate to constipation. IMPRESSION: Possible constipation. Nonspecific bowel gas pattern otherwise.
[2016-09-18] MEDS: OCUVITE LUTEIN & ZEAXANTHIN PO SCH (09:52)
--- NOTE | 2016-09-18 14:58 | CONSULTATION ---
DATE OF CONSULTATION: 09/18/2016 HISTORY OF PRESENT ILLNESS: Ms. Petra Barrios is an 86-year-old lady who cardiology was consulted for bradycardia. She has paroxysmal atrial fibrillation. She was recently admitted with atrial fibrillation. However, has a had bradycardia and diltiazem was discontinued. She comes in with weakness. No velma syncopal episode. Electrocardiogram at the moment reveals normal sinus rhythm. She has also had sinus bradycardia, rates in the 50s and 60s. She wore a monitor for 30 days. However, she does have the monitor with her and she was going to go home and send it in so that this can be analyzed and follow up with Dr. Swain. She has shortness of breath. She complains of weakness. Denies chest pain suggestive of angina. REVIEW OF SYSTEMS: A 14-point review of systems was done.GI: There is no history of nausea, vomiting, or diarrhea. Genitourinary: There is no dysuria or hematuria. Respiratory System: She has shortness of breath. There is no cough, fevers, or chills. PAST MEDICAL HISTORY: 1. Paroxysmal atrial fibrillation. 2. Severe tricuspid regurgitation. 3. COPD. 4. Diastolic heart failure. 5. Renal insufficiency. 6. Hypertension. MEDICATIONS: Her current home medications include: 1. Calcium 500. 2. Losartan 50. 3. Garlic pills. 4. Coumadin as directed. 5. Lasix 40. ALLERGIES: She is allergic to doxycycline and levofloxacin. SOCIAL HISTORY: She does not smoke. There is no history of alcohol abuse. PHYSICAL EXAMINATION: Vital signs: Blood pressure was 136/61. Cardiovascular System: Normal jugular venous pressure. First and second heart sounds were heard. There was a systolic murmur. Respiratory System: Few scattered expiratory wheeze. Abdomen: Soft, nontender. There was no guarding or rigidity. Bowel sounds were heard. Central nervous system: Alert, oriented. Was moving extremities. Extremities: Examination revealed mild pedal edema. LABORATORY: Chemistry 138, potassium 4.0, BUN 16, creatinine 0.7. Hematology: Hemoglobin 11.9, hematocrit 37, platelet count of 111,000. Coagulation: APTT 42.1. Chest x-ray revealed atelectasis and emphysema. There was no obvious pneumonia. ASSESSMENT AND PLAN: 1. Ms. Petra Barrios is an 86-year-old lady with paroxysmal atrial fibrillation, severe tricuspid regurgitation, and diastolic heart failure, is admitted with weakness and some shortness of breath. From a cardiac standpoint she has sinus bradycardia at the moment in the 50s. She is anticoagulated with Coumadin. 2. As far as atrial fibrillation is concerned, medications were discontinued because of the bradycardia she had with medications during her last hospitalization. She has worn a 30 day loop monitor. RECOMMENDATIONS: 1. I have recommended that she send this back to the company so that this can be evaluated and sent to our office. She can go to rehab and follow up with Dr. Swain as outpatient to go over the results of the 30 day monitor to see whether or not she is a candidate for pacemaker implantation. 2. She is anticoagulated for stroke prophylaxis. 3. There is no bleeding diathesis. Would recommend continuing her medication. Thank you for the consult. We will follow the hospital course. cc: Aneesh Sheets MD
--- NOTE | 2016-09-18 15:40 | HISTORY AND PHYSICAL ---
CHIEF COMPLAINT: Increasing shortness of breath and weakness over the last 2 weeks. She denied chest pain or palpitations, syncope, dizziness. HISTORY OF PRESENT ILLNESS: This is an 86-year-old female with a history of atrial fibrillation, on chronic anticoagulation, hypertension, diastolic heart failure, moderate to moderately severe tricuspid regurgitation, COPD, chronic renal insufficiency. She presented to the emergency room complaining of 2 weeks of increasing shortness of breath and generalized weakness. She has had a history of these same symptoms starting about 3-4 months ago. She was subsequently hospitalized in July 2016 having atrial fibrillation with a bradycardic response. Cardizem was discontinued. Heart rate did improve. Heart rate increased from the 40s to the high 50s and 60s. Symptoms did resolve. She states that over the last 2-3 weeks she has had the same symptoms. She is not on Cardizem at this time. She did follow up with Cardiology within the last 2 weeks on Cardizem. She was supposed to have an event monitor although she has opted not to do this. She did talk to Cardiology within the last 2 weeks. She states that medications were not changed. She denied any weight gain. Her chest x-ray did reveal an emphysema, a mildly prominent heart, atelectasis versus a small infiltrate in the right base. She is being admitted for further evaluation and treatment. PAST MEDICAL HISTORY: 1. Significant for chronic atrial fibrillation. 2. Chronic anticoagulation. 3. Severe tricuspid regurgitation. 4. Chronic obstructive pulmonary disease. 5. History of diastolic heart failure with an EF of 68% in October 2015. 6. Hypertension. 7. Chronic renal insufficiency. SOCIAL HISTORY: She denies alcohol, tobacco, or illicit drug use. ALLERGIES: Doxycycline and Levaquin which cause a rash. HOME MEDICATIONS: Lasix 40 daily. Ocuvite Eye tablet 1 daily. Garlic 1 daily. Calcium 500 mg daily. Coumadin 5 mg at bedtime. Cozaar 50 daily. REVIEW OF SYSTEMS: A 14 point review of systems was discussed with patient with pertinent positives being generalized weakness, shortness of breath, dyspnea on exertion. She denied syncope, dizziness, fever, chills, chest pain, palpitations, nausea, vomiting, diarrhea, constipation, black or bloody vomitus, black or bloody stools, any recent weight loss or weight gain. PHYSICAL EXAMINATION: GENERAL: This is an 86-year-old female who presented with 2 weeks of generalized weakness and shortness of breath. VITAL SIGNS: Blood pressure is 159/74, with a heart rate of 62, respirations are 18, temperature is 97.9 degrees oral with oxygen saturation of 98%-100% on 2 L nasal cannula. HEENT: Head is normocephalic, atraumatic. Pupils equal, round, react to light. EOMs are intact. Sclerae are anicteric. Mucous membranes are moist. NECK: Supple with trachea midline. CARDIOVASCULAR: Regular rate and rhythm. No rubs, murmurs, or gallops. S1 and S2 appreciated. PULMONARY: Breath sounds are clear with no increased work of breathing noted. GASTROINTESTINAL: Abdomen is soft, nontender, nondistended. Bowel sounds in all 4 quadrants. SKIN: Warm and dry with no rashes or lesions noted. GASTROINTESTINAL: Abdomen is soft, nontender, nondistended. Bowel sounds in all 4 quadrants. EXTREMITIES: No clubbing or cyanosis. She does have 1+ pretibial edema bilateral. DIAGNOSTIC DATA: WBC is 4.1, with a hemoglobin of 11.9, hematocrit 37.4, platelets of 111,000. Sodium is 138, potassium 4, BUN 16, creatinine 0.7, with a glucose of 88. Troponins are negative on multiple occasions, with a proBNP of 1949. Urinalysis is positive for blood, less than 10 microscopic white blood cells, 2+ bacteria. Chest x-ray revealed emphysema, mildly prominent heart, and atelectasis versus a small infiltrate in the right base. ASSESSMENT AND PLAN: 1. Generalized weakness. 2. History of atrial fibrillation, on chronic anticoagulation. 3. Bradycardia. 4. Severe tricuspid regurgitation. 5. Diastolic heart failure with an ejection fraction of 65% in October 2015. 6. Right lower lobe infiltrate versus atelectasis. 7. Constipation. She will be admitted to the hospital. She will be placed on telemetry. We will give supplemental oxygen. We will identify and continue her home medicines as appropriate. We will hold any beta blockers or medications that can further lower her heart rate. We will consult Cardiology. Will get daily INRs and dose Coumadin accordingly for target INR of 2-3. Maintain strict I and O. We will start incentive spirometer. The patient has denied any respiratory symptoms. She has been afebrile. She has no elevated white count. We will start pulmonary toilet, and hold off on antibiotics at present. If white count increases, she spikes a temperature or begins to show symptoms we will start antibiotics. Further treatments pending hospital course. Dictated by DIVYA De Dios for Lamberto Burrell MD cc: DIVYA De Dios MD
[2016-09-18] MEDS: COUMADIN PO SCH (21:41)
[2016-09-19 06:02] LABS: HEMATOCRIT 36.3 % (37.0-47.0); HEMOGLOBIN 11.2 g/dL (12.0-16.0); MCH 29.9 PG (27-31); MCHC 30.9 g/dL (33-37); MCV 97.1 FL (81-99); MPV 10.9 FL (7.4-10.4); RBC 3.74 XMIL (4.2-5.4)
[2016-09-19 06:11] LABS: INR 2.51 (0.86-1.15); PROTIME 27.1 Seconds (12.1-15.5)
[2016-09-19 07:01] LABS: ALBUMIN 3.7 g/dL (3.5-5.0); CALCIUM 8.6 mg/dL (8.8-10.2); MAGNESIUM 2.1 mg/dL (1.5-2.7); POTASSIUM 4.1 mmol/L (3.5-5.1); TOTAL BILIRUBIN 0.6 mg/dL (0.20-1.00); TOTAL PROTEIN 6.1 g/dL (6.3-8.3)
[2016-09-19] MEDS: TUMS PO SCH (08:38)
[2016-09-19] MEDS: ROCEPHIN 1 GM/NS 1 GM/50 ML IVPB IV SCH (08:38)
[2016-09-19] MEDS ORDERED: TESSALON PO PRN (08:55)
[2016-09-19] MEDS: LASIX PO SCH (11:01)
[2016-09-19] MEDS: MIRALAX PO SCH (11:01)
[2016-09-19] MEDS: PATIENT'S OWN MED PO SCH (11:01)
[2016-09-19] MEDS: COZAAR PO SCH (11:01)
[2016-09-19] MEDS: OCUVITE LUTEIN & ZEAXANTHIN PO SCH (11:01)
--- NOTE | 2016-09-19 14:32 | PROGRESS NOTE ---
DATE: 09/19/2016 SUBJECTIVE: The patient feels some better today. She is sitting up in the bedside chair at present. She denies any spells of weakness or shortness of breath. OBJECTIVE: Vital Signs: Blood pressure is 143/60 with a heart rate of 64. Respirations are 18, temperature is 98.4 degrees oral with oxygen saturations of 93% to 96% on room air. Cardiovascular: Regular rate and rhythm. S1 and S2 are appreciated. Pulmonary: Breath sounds are clear. No increased work of breathing noted. Gastrointestinal: Abdomen is soft, nontender, nondistended. Bowel sounds in all 4 quadrants. Extremities: No clubbing or cyanosis. She does have a little pretibial edema. Calves are nontender. Pulses are palpable x4. DIAGNOSTICS: WBC is 3.8 with a hemoglobin of 11.2, hematocrit 36.3, and platelets of 104,000. Sodium is 140, potassium 4.1, BUN 18, creatinine 0.9, with a glucose of 82. INR is 2.51. ASSESSMENT: 1. Generalized weakness. 2. History of atrial fibrillation, on chronic anticoagulation. 3. Bradycardia. 4. Severe tricuspid regurgitation. 5. Diastolic heart failure with ejection fraction of 65% in October 2015. 6. Right lower lobe infiltrate versus atelectasis. 7. Constipation. We will continue with her current regimen, trending laboratories with daily INR. Of note, her INR is 2.51 today. For atrial fibrillation, her target INR is 2-3, so we will continue her warfarin at the present dose. Heart rates have stayed in the 60s and 70s, and it looks like the lowest reading was 57 last night. She continues to deny any respiratory symptoms. We will continue pulmonary toilet, encourage her to increase her activity. Once again, the patient was encouraged by Dr. Sheets to mail in her event monitor. She was supposed to wear it for 30 days, although she did take it off on admission to the hospital, so she wore it about 26-27 days. She was encouraged to go ahead and mail it in, then follow up with Dr. Borges in about 3 weeks to discuss results and future plans. Dictated by DIVYA De Dios for Lamberto Burrell MD cc: DIVYA De Dios MD
[2016-09-19] MEDS: COUMADIN PO SCH (20:18)
[2016-09-20 06:33] LABS: INR 3.01 (0.86-1.15); PROTIME 31.1 Seconds (12.1-15.5)
--- NOTE | 2016-09-20 08:32 | Diag Imaging Result Document ---
PROCEDURE NAME: CHEST-2 VIEWS - 09/20/2016 FRONTAL AND LATERAL CHEST, TWO VIEWS: COMPARISON: 09/17/2016. FINDINGS: The lungs are well expanded. The heart remained enlarged. There are small bilateral pleural effusions. Increased AP diameter to the chest. The vessels are not distended. I believe there is a small to moderate sized hiatal hernia. IMPRESSION: Stable chest.
[2016-09-20] MEDS: ROCEPHIN 1 GM/NS 1 GM/50 ML IVPB IV SCH (09:08)
[2016-09-20] MEDS: TUMS PO SCH (09:09)
[2016-09-20] MEDS: LASIX PO SCH (09:09)
[2016-09-20] MEDS: OCUVITE LUTEIN & ZEAXANTHIN PO SCH (09:09)
[2016-09-20] MEDS: COZAAR PO SCH (09:09)
[2016-09-20] MEDS: MIRALAX PO SCH (09:09)
[2016-09-20] MEDS: PATIENT'S OWN MED PO SCH (09:18)
--- NOTE | 2016-09-20 11:16 | PROGRESS NOTE ---
DATE: 09/20/2016 SUBJECTIVE: The patient notes that her cough is a little bit better. She is still having some shortness of breath with activity, but denies any overall fevers or chills. Denies any production of the cough. Denies any chest pain, palpitations. OBJECTIVE: Vital Signs: On physical, temperature 98, pulse 66, respiratory 20, BP 138/57 to 168/67, satting 99% on 3 L. General: Patient is awake, alert. She is in no current respiratory distress. She is feeling better. Neck: Supple. CV: Regular rate. Chest: Relatively clear. Abdomen: Soft. Extremities: Moves all extremities. Neurologic: No changes. LABS: INR 3.1. ASSESSMENT: 1. Atrial fibrillation currently on anticoagulation, stable at 3.1. 2. Bradycardia, stable. Heart rate in the mid 60s. 3. Generalized weakness. Patient most likely will need rehabilitation. 4. Diastolic heart failure with ejection fraction of 65% in October. 5. Right lower lobe infiltrate. We will continue Rocephin today. Hopefully, patient can transfer to rehabilitation soon. 6. Hypertension. Blood pressure mildly elevated. We will continue to follow this for now. Certainly may need to increase her losartan to 100. PLAN: Hopefully, the patient can be transferred to rehab. She certainly may end up needing a pacemaker in the future. She will follow up outpatient with cardiology per their request. cc: Lamberto Burrell MD
[2016-09-20] MEDS: COUMADIN PO SCH (20:18)
[2016-09-21 06:26] LABS: HEMATOCRIT 35.3 % (37.0-47.0); MCH 30.2 PG (27-31); MCHC 31.2 g/dL (33-37); RBC 3.64 XMIL (4.2-5.4)
[2016-09-21 06:51] LABS: AGAP 12; ALBUMIN 3.7 g/dL (3.5-5.0); ALKALINE PHOSPHATASE 80 U/L (32-104); BUN 17 mg/dL (8-22); CALCIUM 8.4 mg/dL (8.8-10.2); CHLORIDE 101 mmol/L (98-107); COSMO 280; GOT 25 U/L (10-30); GPT 11 U/L (10-36); POTASSIUM 3.9 mmol/L (3.5-5.1); SODIUM 140 mmol/L (136-145); TCO2 27 mmol/L (25-35); TOTAL PROTEIN 6.1 g/dL (6.3-8.3)
[2016-09-21 06:52] LABS: INR 2.74 (0.86-1.15)
[2016-09-21] MEDS: ROCEPHIN 1 GM/NS 1 GM/50 ML IVPB IV SCH (07:51)
[2016-09-21] MEDS ORDERED: COZAAR PO ONE (09:15)
[2016-09-21] MEDS: MIRALAX PO SCH (10:54)
[2016-09-21] MEDS: OCUVITE LUTEIN & ZEAXANTHIN PO SCH (10:54)
[2016-09-21] MEDS: TUMS PO SCH (10:55)
[2016-09-21] MEDS: LASIX PO SCH (10:55)
[2016-09-21] MEDS: PATIENT'S OWN MED PO SCH (10:57)
--- NOTE | 2016-09-21 11:40 | PROGRESS NOTE ---
DATE: 09/21/2016 SUBJECTIVE: The patient notes that she is feeling okay this morning. She is having some chills and some mild cough but her cough is better than yesterday. Denies any chest pain. Denies any current palpitations. Has not been out of bed. Denies any dizziness while she is in the bed. Denies any GI or issues. PHYSICAL EXAMINATION: Vital Signs: Temperature 98, pulse 57-63, respiratory rate 18, BP 154/58, saturations 99% on 3 L. General: Patient is awake, alert. She is in no current respiratory distress. She is lying in bed covered up. HEENT: Normocephalic, atraumatic. HOA. Neck: Supple. CV: Mild bradycardia. No appreciable murmurs. Chest: Clear. Abdomen: Soft. Extremities: Moves all extremities. Neurologic: No changes. ASSESSMENT: 1. Hypertension. Blood pressure remains elevated. We will increase her Cozaar to 100. We had asked her to increase it to 100 the last time she was in the hospital but apparently this has been decreased back down. 2. Hypoxemia. Still uncertain of her actual oxygen requirement and as we are having great difficulty in actually documenting correct oxygen and saturations. Again, we will ask the staff to wean her oxygen down. 3. Bradycardia, stable. 4. Hypercoagulopathy. INR is 2.7. She currently is in range. We will continue her Coumadin. 5. Bilateral pleural effusions, improved. 6. Atrial fibrillation. Continue anticoagulation. 7. Severe tricuspid regurgitation. 8. Right lower lobe infiltrate. We will continue Rocephin. PLAN: Hopefully, the patient can be transitioned to rehabilitation in the next day or two. She certainly may need a pacemaker in the future. We will continue to follow. cc: Lamberto Burrell MD
[2016-09-21] MEDS: COUMADIN PO SCH (21:00)
[2016-09-22] MEDS ORDERED: TYLENOL PO PRN (00:57)
[2016-09-22] MEDS ORDERED: COZAAR PO SCH (09:00)
[2016-09-22] MEDS ORDERED: OMNICEF PO SCH (09:00)
[2016-09-22] MEDS: OCUVITE LUTEIN & ZEAXANTHIN PO SCH (09:25)
[2016-09-22] MEDS: PATIENT'S OWN MED PO SCH (09:26)
[2016-09-22] MEDS: TUMS PO SCH (09:26)
[2016-09-22] MEDS: LASIX PO SCH (09:26)
[2016-09-22] MEDS: MIRALAX PO SCH (09:26)
--- NOTE | 2016-09-22 10:44 | DISCHARGE SUMMARY ---
ADMISSION DATE: 09/17/2016 DISCHARGE DATE: 09/22/2016 DISCHARGE DIAGNOSES: 1. Chronic atrial fibrillation with significant bradycardia. 2. Generalized weakness. 3. Chronic anticoagulation secondary to Coumadin. INR is 2.7. 4. Severe tricuspid regurgitation. 5. Diastolic congestive heart failure with an ejection fraction of 65% in October of 2015. 6. Right lower lobe pneumonia, improving. 7. Chronic constipation. 8. Hypertension. 9. Chronic hypoxemia, stable. CONSULTATIONS: Cardiology. PROCEDURES: None. BRIEF HOSPITAL COURSE: Patient is an 86-year-old female who was admitted to the hospital secondary to significant bradycardia, dyspnea on exertion, and syncope. She continued to have some lightheaded episodes early in the morning but they improved in the afternoon. She states that she is generally weak first thing in the morning but after she gets up and is more awake, her symptoms go away. Cardiology was consulted. They did not feel as though changing medications was prudent at this point. Her blood pressure did remain elevated. Therefore, losartan was increased again from 50-100 as noted in the hospital chart. Other than that, no other medication changes were made. Her heart rate continued to climb. On discharge, it was in the upper 50s to mid 60s. DISPOSITION: The patient will be discharged to rehab when a bed is available. We will continue her on her current medications, calcium, Lasix 40, Cozaar 100, Coumadin 5 at bedtime. She will need to be set up with an event monitor while in rehab and continue to follow with cardiology as she certainly may need a pacemaker in the future. She will continue Omnicef for 4 more days. TIME SPENT: Thirty-five minutes were spent in discharge planning. cc: Lamberto Burrell MD
[2016-09-22 12:18] VITALS: BP 181/50
== END 2016-09-22 14:35 ==
LOC: P.ED 14:48 → P.MEDSURG 19:44
PROVIDERS: ATTEND Family Medicine